=== PATIENT | female | born 1970 | race Caucasian/White ===

== ENCOUNTER 2018-08-16 06:15 | Emergency (ER) | payer OTHER ==
[~2018-08-16] VITALS: Ht 157.5 cm; Wt 59.0 kg
[2018-08-16 06:25] VITALS: Ht 157.5 cm; Wt 59.0 kg
[2018-08-16 06:57] LABS: BASOPHIL % 0.4 % (0-2); PLATELET COUNT 260 x10^3mcL (130-400); RED CELL DISTRIBUTION WIDTH 13.2 % (11.5-14.5)
[2018-08-16 07:17] LABS: CALCIUM 9.2 mg/dL (8.5-10.1); CARBON DIOXIDE 26.3 mmol/L (21-32); CHLORIDE SERUM 104 mmol/L (98-107); CREATININE SERUM 0.7 mg/dL (0.6-1.0); GFR1 > 60 mL/min; GLUCOSE SERUM 107 mg/dL (74-106); POTASSIUM SERUM 3.4 mmol/L (3.5-5.1); SODIUM SERUM 141 mmol/L (136-145)
[2018-08-16 07:19] LABS: ALBUMIN 3.5 g/dL (3.4-5.0); ALKALINE PHOSPHATASE 150 U/L (46-116); ALT/SGPT 31 U/L (14-59); AMYLASE 40 U/L (25-115); AST/SGOT 16 U/L (15-37); BILIRUBIN TOTAL 0.17 mg/dL (0.20-1.00); LIPASE 205 IU/L (73-393); TOTAL PROTEIN, SERUM 7.1 g/dL (6.4-8.2)
[2018-08-16 08:09] VITALS: BP 133/83
== END 2018-08-16 08:09 | disposition home or self-care (01) ==
LOC: ED 06:15
PROVIDERS: Emergency Medicine
DX: K80.70 Calculus of gallbladder and bile duct without cholecystitis without obstruction (principal); Z88.0 Allergy status to penicillin
CPT/HCPCS: J1885; J2405